=== PATIENT | female | born 1990 | race African-American/Black ===

== ENCOUNTER 2024-01-06 10:55 | Emergency (ER) | payer SELFPAY ==
[~2024-01-06] VITALS: Ht 167.6 cm; Wt 48.2 kg
[2024-01-06 11:11] VITALS: TEMP 98.5
[2024-01-06 13:47] LABS: HEMOGLOBIN 12.3 g/dl (12.5-16.0); MEAN CELL VOLUME 84 fl (80.0-100.0); MEAN CORPUSCULAR HEMOGLOBIN 29 pg (27-31); MEAN CORPUSCULAR HGB CONC 34 g/dl (33.0-37.0); MEAN PLATELET VOLUME 10.6 fl (7.4-10.4); PLATELET COUNT 248 K/mm3 (130-400); RED BLOOD COUNT 4.32 M/mm3 (4.10-5.30); REDCELL DISTRIBUTION WIDTH-CV 12.8 % (11.5-14.5)
[2024-01-06 13:59] LABS: ALBUMIN 4.1 g/dL (3.5-5.0); BILIRUBIN,TOTAL 0.4 mg/dL (0.2-1.2); CALCIUM 9.2 mg/dL (8.4-10.2); CREATININE, serum 0.69 mg/dL (0.57-1.11); POTASSIUM 3.4 mEq/L (3.5-4.5)
[2024-01-06 14:05] LABS: TROPONIN-I 0.012 ng/mL (0.00-0.033)
[2024-01-06 14:32] LABS: HEMATOCRIT 36.2 % (37.0-47.0)
[2024-01-06 14:35] LABS: BASOPHIL 1 % (0-2); EOSINOPHIL 1 % (0-4); LYMPHOCYTE 28 % (20.0-51.0); NEUTROPHILS 66 % (42.0-75.2)
[2024-01-06 14:45] VITALS: BP 109/58; PULSE 93
== END 2024-01-06 14:45 | disposition home or self-care (01) ==
LOC: COL.ER 10:55
PROVIDERS: Emergency Medicine
DX: R07.81 Pleurodynia (principal); R00.1 Bradycardia, unspecified; D64.9 Anemia, unspecified; Z87.891 Personal history of nicotine dependence